=== PATIENT | male | born 1985 ===

== ENCOUNTER 2018-12-06 15:34 | Emergency (ER) | payer SELFPAY ==
[2018-12-06 15:41] VITALS: RESP 18; TEMP 98.4; O2SAT 100
--- NOTE | 2018-12-06 16:46 | C.PDOC ---
Time Seen by Provider: 12/06/18 15:43 Chief Complaint (Nursing): Lower Extremity Problem/Injury Past Medical History Vital Signs: Last Vital Signs Temp 98.4 F 12/06/18 15:38 Pulse 94 H 12/06/18 15:38 Resp 18 12/06/18 15:38 BP 154/86 H 12/06/18 15:38 Pulse Ox 100 12/06/18 15:38 - Social History Hx Alcohol Use: No Hx Substance Use: No - Immunization History Hx Tetanus Toxoid Vaccination: No Hx Influenza Vaccination: No Hx Pneumococcal Vaccination: No ED Course And Treatment - Laboratory Results Lab Results: D-Dimer, Quantitative < 200 ng/mlDDU (0-243) 12/06/18 15:58 O2 Sat by Pulse Oximetry: 100 Disposition - Disposition Prescriptions: Methocarbamol [Robaxin] 500 mg PO BID 7 Days #18 tab Naproxen [Naprosyn] 500 mg PO BID #10 tablet Forms: [employer] (Belizean)
--- NOTE | 2018-12-06 16:46 | C.PDOC ---
History Of Present Illness 33 y/o male pt presents to the ER c/o left lower leg pain for x7 days. Patient denies any injury, recent travels, rash, weakness, numbness or bruising. Pain is worse when his legs are moving or being touched. Time Seen by Provider: 12/06/18 15:43 Chief Complaint (Nursing): Lower Extremity Problem/Injury History Per: Patient History/Exam Limitations: no limitations Onset/Duration Of Symptoms: Days (x7) Current Symptoms Are (Timing): Still Present Severity: Moderate Pain Scale Rating Of: 5 Recent travel outside of the [place]: No Past Medical History Reviewed: Historical Data, Nursing Documentation, Vital Signs Vital Signs: Last Vital Signs Temp 98.4 F 12/06/18 15:38 Pulse 94 H 12/06/18 15:38 Resp 18 12/06/18 15:38 BP 154/86 H 12/06/18 15:38 Pulse Ox 100 12/06/18 15:38 - Medical History PMH: No Chronic Diseases Surgical History: No Surg Hx Family History: States: No Known Family Hx - Social History Hx Alcohol Use: No Hx Substance Use: No - Immunization History Hx Tetanus Toxoid Vaccination: No Hx Influenza Vaccination: No Hx Pneumococcal Vaccination: No Review Of Systems Except As Marked, All Systems Reviewed And Found Negative. Constitutional: Negative for: Other (injury or recent travels) Musculoskeletal: Positive for: Leg Pain (lower left ) Skin: Negative for: Rash, Bruising Neurological: Negative for: Weakness, Numbness Physical Exam - Physical Exam Appears: Non-toxic, No Acute Distress Skin: Warm, Dry Head: Normacephalic Eye(s): bilateral: Normal Inspection, EOMI Throat: Normal Neck: Normal ROM, Supple Chest: Symmetrical Cardiovascular: Rhythm Regular Respiratory: Normal Breath Sounds, No Rales, No Rhonchi, No Wheezing Gastrointestinal/Abdominal: Soft, No Tenderness Extremity: Normal ROM (x4), Tenderness (diffuse muscular tenderness and tenderness behind left lateral knee), No Pedal Edema, No Calf Tenderness, Capillary Refill (<2 sec), No Deformity, No Swelling Pulses: Left Dorsalis Pedis: Normal Neurological/Psych: Oriented x3, Normal Speech, Normal Motor, Normal Sensation ED Course And Treatment - Laboratory Results Lab Results: D-Dimer, Quantitative < 200 ng/mlDDU (0-243) 12/06/18 15:58 O2 Sat by Pulse Oximetry: 100 (RA) Pulse Ox Interpretation: Normal Medical Decision Making Medical Decision Making: pt has low risk for DVT D-Dimer results (-) negative recommended anti-inflammatory medication and rest If it does not improve: venouse doppler, pMD follow up Disposition Counseled Patient/Family Regarding: Diagnosis, Need For Followup, Rx Given - Disposition Referrals: [facility] [Outside] Disposition: HOME/ ROUTINE Disposition Time: 16:44 Condition: STABLE Prescriptions: Methocarbamol [Robaxin] 500 mg PO BID 7 Days #18 tab Naproxen [Naprosyn] 500 mg PO BID #10 tablet Instructions: Muscle Strain Forms: [employer] (Korean), General Discharge Instructions - POA Present On Arrival: None - Clinical Impression Clinical Impression: Muscle strain - Scribe Statement The provider has reviewed the documentation as recorded by the Severino Brown Do Provider Attestation: All medical record entries made by the Scribe were at my direction and personally dictated by me. I have reviewed the chart and agree that the record accurately reflects my personal performance of the history, physical exam, medical decision making, and the department course for this patient. I have also personally directed, reviewed, and agree with the discharge instructions and disposition.
[2018-12-06 16:52] VITALS: BP 148/76; PULSE 68
== END 2018-12-06 16:52 | disposition home or self-care (01) ==
LOC: C.ER 15:34
DX: S86.912A Strain of unspecified muscle(s) and tendon(s) at lower leg level, left leg, initial encounter (principal); X58.XXXA Exposure to other specified factors, initial encounter

== ENCOUNTER 2018-12-22 12:34 | Emergency (ER) | payer OTHER ==
[2018-12-22] MEDS ORDERED: Lidocaine 1% Inj (20ml) INFIL STA (13:18)
[2018-12-22] MEDS ORDERED: Lidocaine Hydrochloride 20 ML INJ ONE (13:36)
--- NOTE | 2018-12-22 14:13 | C.PDOC ---
History Of Present Illness 33 year old male presents to the ED for evaluation of chronic left knee pain and fullness. Patient was evaluated in the ED on December 06, had a negative d-dimer, and was discharged with Rx for anti-inflammatories. Patient has been applying icy creams to the area, but has not applied ice packs. He denies fever, chills, extremity numbness/weakness, recent trauma/injuries. Patient denies fever, chills. Time Seen by Provider: 12/22/18 13:13 Chief Complaint (Nursing): Lower Extremity Problem/Injury History Per: Patient History/Exam Limitations: no limitations Onset/Duration Of Symptoms: Days Current Symptoms Are (Timing): Still Present Additional History Per: Patient Past Medical History Reviewed: Historical Data, Nursing Documentation, Vital Signs Vital Signs: Last Vital Signs Temp 99.1 F 12/22/18 13:06 Pulse 97 H 12/22/18 13:06 Resp 20 12/22/18 13:06 BP 130/86 12/22/18 13:06 Pulse Ox 100 12/22/18 13:06 - Medical History PMH: No Chronic Diseases Surgical History: No Surg Hx Family History: States: Unknown Family Hx - Social History Hx Alcohol Use: Yes Hx Substance Use: No - Immunization History Hx Tetanus Toxoid Vaccination: No Hx Influenza Vaccination: No Hx Pneumococcal Vaccination: No Review Of Systems Constitutional: Negative for: Fever, Chills Musculoskeletal: Positive for: Other (left knee pain, chronic ) Neurological: Negative for: Weakness, Numbness Physical Exam - Physical Exam Appears: Non-toxic, No Acute Distress Skin: Normal Color, Warm, Dry Extremity: No Normal ROM (limited, secondary to pain ), Other (left knee: mild suprapatellar joint effusion, mild posterior knee fullness. no erythema noted ) Neurological/Psych: Oriented x3, Normal Speech, Normal Cognition, Normal Sensation ED Course And Treatment O2 Sat by Pulse Oximetry: 100 (on RA) Pulse Ox Interpretation: Normal - Other Rad L knee X-Ray: Interpreted by Me (normal orientation, + small joint effusion) Interpretation: Probable small suprapatellar joint effusion. No acute displaced fracture or dislocation identified. If symptoms persist, or if there is continued clinical concern, x-ray follow-up in 7-10 days should be considered. Medical Decision Making Medical Decision Making: small effusion on L knee films failed 2 attempts to tap L knee and instill steroids/lidocaine. 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 rest and ice/NSAIDS reinforced note for work Disposition Doctor Will See Patient In The: Office Counseled Patient/Family Regarding: Studies Performed, Diagnosis - Disposition Referrals: [facility] [Outside] [facility] [Outside] [facility] [Outside] Sanjiv Stephens III, MD [Staff Provider] - Disposition: HOME/ ROUTINE Disposition Time: 14:15 Condition: GOOD Additional Instructions: bolsa de hielo 1/2 hora por hora, nada caliente Ibuprofeno/advil 400-600 mg cada 6 horas oren necessario Tienes que descansar la rodilla izquierda NO caminas/trabajas olivia por 3 hooks Sigue con el Orthoped[facility] oren necessario Llama para hacer itz Instructions: Chronic Knee Pain Forms: [employer] (Urdu), Work Excuse Print Language: NORTHERN IRISH - Clinical Impression Clinical Impression: Knee pain, left - Scribe Statement The provider has reviewed the documentation as recorded by the Scribe (Daya Fisher) Provider Attestation: All medical record entries made by the Scribe were at my direction and personally dictated by me. I have reviewed the chart and agree that the record accurately reflects my personal performance of the history, physical exam, medical decision making, and the department course for this patient. I have also personally directed, reviewed, and agree with the discharge instructions and disposition.
[2018-12-22 14:32] VITALS: BP 133/83; PULSE 98; RESP 18; TEMP 98.9
--- NOTE | 2018-12-22 15:26 | RAD ---
PROCEDURE: Left Knee Radiographs. HISTORY: L knee effusion, no trauma COMPARISON: None available. FINDINGS: BONES: No acute displaced fracture. JOINTS: No dislocation. JOINT EFFUSION: Probable small suprapatellar joint effusion. OTHER FINDINGS: None. IMPRESSION: Probable small suprapatellar joint effusion. No acute displaced fracture or dislocation identified. If symptoms persist, or if there is continued clinical concern, x-ray follow-up in 7-10 days should be considered.
[2018-12-22 15:46] VITALS: O2SAT 100
== END 2018-12-22 14:32 | disposition home or self-care (01) ==
LOC: C.ER 12:34
DX: M25.562 Pain in left knee (principal)